=== PATIENT | female | born 1960 | race Caucasian/White ===

== ENCOUNTER 2024-12-05 19:26 | Inpatient (IN) | payer MEDICARE, OTHER ==
[~2024-12-05] VITALS: Ht 167.6 cm; Wt 84.7 kg
[~2024-12-05 19:26] MED LIST: AMLO5 PO; Aspirin EC81 MG PO; CEPH500 PO; LISI20 PO; OXYC5 PO; Prozac40 MG PO
[2024-12-05 20:02] LABS: Base Excess Venous -0.3 mmol/L; Bicarbonate Venous 24.2 mmol/L (24.0-30.0); PCO2 Venous 36.7 mmHg (38-42); pH Blood Venous 7.43 (7.34-7.37)
[2024-12-05 20:22] LABS: BASOPHILS ABSOLUTE AUTO 0.06 K/mm3 (0.00-0.23); BASOPHILS PERCENT AUTO 1 % (0-2); EOSINOPHILS ABSOLUTE AUTO 0.17 K/mm3 (0.00-0.68); EOSINOPHILS PERCENT AUTO 2 % (0-6); Hematocrit 24.7 % (33.0-51.0); Hemoglobin 7.3 g/dL (11.5-16.0); IMMATURE GRAN ABSOLUTE AUTO 0.02 K/mm3 (0.00-0.10); IMMATURE GRAN PERCENT AUTO 0 % (0-1); LYMPHOCYTES ABSOLUTE AUTO 1.41 K/mm3 (0.84-5.20); LYMPHOCYTES PERCENT AUTO 16 % (21-46); MONOCYTES ABSOLUTE AUTO 0.85 K/mm3 (0.16-1.47); MONOCYTES PERCENT AUTO 10 % (4-13); Mean Corpuscular HGB 21.3 pg (26.0-34.0); Mean Corpuscular HGB Conc 29.6 g/dL (31.5-36.5); Mean Corpuscular Volume 72 fL (80-100); Mean Platelet Volume 9.7 fL (9.1-12.4); NEUTROPHILS ABSOLUTE AUTO 6.24 K/mm3 (1.96-9.15); NEUTROPHILS PERCENT AUTO 71 % (41-73); Platelet Count 373 K/mm3 (150-400); RDW Coefficient Variation 17.2 % (11.7-14.2); RDW Standard Deviation 44.5 fL (35.1-46.3); Red Blood Cell Count 3.42 M/mm3 (3.80-5.20); White Blood Cell Count 8.75 K/mm3 (4.00-11.30)
[2024-12-05 20:50] LABS: Albumin, Blood 2.9 g/dL (3.4-5.0); Albumin/Globulin Ratio 0.7 (0.8-1.8); Bilirubin, Total 0.2 mg/dL (0.1-1.0); Bun/Creatinine Ratio 10.2 (12.0-20.0); Calcium, Blood 8.3 mg/dL (8.5-10.1); Creatinine, Blood 1.47 mg/dL (0.40-1.00); Globulin, Blood 3.9 g/dL (2.2-4.0); Potassium, Blood 2.6 mmol/L (3.5-5.5); Total Protein, Blood 6.8 g/dL (6.4-8.2)
[2024-12-05 20:51] LABS: Influenza A, PCR NEGATIVE (NEGATIVE); Influenza B, PCR NEGATIVE (NEGATIVE); Resp Syncytial Virus, PCR NEGATIVE (NEGATIVE); SARS-Cov-2 (COVID-19) PCR, MMC NEGATIVE (NEGATIVE)
[2024-12-05] MEDS ORDERED: Potassium Chloride 40 MEQ in NS 250 ML IV ONE ×2 (22:45→23:10)
[2024-12-05] MEDS ORDERED: Furosemide 10 MG/ML 4ML Vial IV ONE (22:45)
[2024-12-05 23:16] VITALS: BP 186/101
[2024-12-05 23:18] LABS: Magnesium, Blood 1.6 mg/dL (1.6-2.4)
[2024-12-05 23:24] LABS: Source, Urine Clean Catch
[2024-12-05] MEDS ORDERED: NS 1,000 ML IV ONE (23:24)
[2024-12-05 23:28] LABS: Appearance, Urine Clear (Clear); Bilirubin, Urine Neg (Neg); Blood, Urine 1+ (Neg); Glucose Qualitative, Urine Neg (Neg); Ketones, Urine Neg (Neg); Leukocyte Esterase, Urine Neg (Neg); Nitrite, Urine Neg (Neg); Protein, Urine 1+ (Neg); Urobilinogen, Urine NORM (Normal)
[2024-12-05 23:30] VITALS: BP 163/103
[2024-12-05 23:54] LABS: Color, Urine Pale Yellow (P-Yellow)
[2024-12-05 23:55] LABS: Bacteria Few /hpf; Red Blood Cells, Urine 0-2 /hpf (0-2); Squamous Epithelial Cells Few /hpf (Few); White Blood Cells, Urine 0-2 /hpf (0-5)
[2024-12-06] VITALS (7 sets, daily range): BP systolic 136–168; BP diastolic 80–102
--- NOTE | 2024-12-06 | NUR ---
CALLED AND RECEIVED REPORT FROM IRENE SETHI IN THE ER. PER REPORT PATIENT IS ALERT AND ORIENTED, INDEPENDENT WITH WALKING SHORT DISTANCES, IS SATTING >95% ON RA. PATIENT IS RECENTLY MOVED TO [place] FROM OUT OF STATE. AWAITING TRANSFER FROM ER.
--- NOTE | 2024-12-06 00:36 | NUR ---
NEW ADMIT. PATIENT ADMITTED TO [facility] FROM THE ER FOR CHF AND NEW AFIB. PATIENT ARRIVED TO ROOM VIA GURNEY AND 1P ASSIST. PATIENT ABLE TO SELF TRANSFER FROM [place] TO HOSPITAL BED WITH STEADY GAIT. PATIENT ARRIVED TO ROOM WITH POTTASIUM INFUSING PER ORDERS-SEE ORDERS. PATIENT ARRIVED TO ROOM WITH 1 PERSONAL BELONGINGS BAG AND PERSONAL PURSE-PATIENT AND SPOUSE EDUCATED TO SEND VALUABLES HOME. PATIENT IS ALERT AND ORIENTED. THIS RN TO ASSUME PATIENT CARE.
[2024-12-06] MEDS ORDERED: ELIQUIS5 M2 PO (04:10)
[2024-12-06] MEDS ORDERED: POTA10T PO (04:11)
[2024-12-06] MEDS ORDERED: MAGNESIUM OXID500 MG PO (04:14)
[2024-12-06] MEDS ORDERED: Vitamin D1000 UNI1 PO (04:14)
[2024-12-06 04:47] LABS: BASOPHILS ABSOLUTE AUTO 0.07 K/mm3 (0.00-0.23); BASOPHILS PERCENT AUTO 1 % (0-2); EOSINOPHILS ABSOLUTE AUTO 0.13 K/mm3 (0.00-0.68); EOSINOPHILS PERCENT AUTO 2 % (0-6); Hematocrit 24.8 % (33.0-51.0); Hemoglobin 7.3 g/dL (11.5-16.0); IMMATURE GRAN ABSOLUTE AUTO 0.02 K/mm3 (0.00-0.10); IMMATURE GRAN PERCENT AUTO 0 % (0-1); LYMPHOCYTES ABSOLUTE AUTO 0.98 K/mm3 (0.84-5.20); LYMPHOCYTES PERCENT AUTO 14 % (21-46); MONOCYTES ABSOLUTE AUTO 0.75 K/mm3 (0.16-1.47); MONOCYTES PERCENT AUTO 10 % (4-13); Mean Corpuscular HGB 21.3 pg (26.0-34.0); Mean Corpuscular HGB Conc 29.4 g/dL (31.5-36.5); Mean Corpuscular Volume 72 fL (80-100); Mean Platelet Volume 9.9 fL (9.1-12.4); NEUTROPHILS ABSOLUTE AUTO 5.33 K/mm3 (1.96-9.15); NEUTROPHILS PERCENT AUTO 73 % (41-73); Platelet Count 348 K/mm3 (150-400); RDW Coefficient Variation 17.1 % (11.7-14.2); Red Blood Cell Count 3.43 M/mm3 (3.80-5.20); White Blood Cell Count 7.28 K/mm3 (4.00-11.30)
--- NOTE | 2024-12-06 04:47 | NUR ---
SHIFT SUMMARY. PATIENT IS A&OX4, CALLS APPROPRIATELY AND IS ABLE TO MAKE HER NEEDS KNOWN. PATIENT HAS STEADY GAIT BUT REPORTS SOB WITH EXERTION AND TAKES PATIENT 2-3 MINUTES TO RECOVER ONCE SITTING OR RESTING. PATIENTS HEART RATE IS IN 80-90'S AT REST AND INCREASES INTO THE 100-130'S WITH ACTIVITY-PATIENT DENIES PALPATION OR RACING HEART DURING THESE TIMES, HEART RATE RECOVERS QUICKY WITH REST. PATIENT HAVING FREQUENT URINATION RELATED TO IV DIURETICS-PATIENT HAS HAD GOOD URINE OUTPUT SINCE ARRIVAL TO FLOOR. PATIENT IS A SBA D/T NEW DIAGNOSIS AND SOB WITH EXERTION. BED IS LOCKED IN LOWEST POSITION [facility] CALL LIGHT IN REACH. ROUNDS COMPLETED. CARE IS ONGOING.
[2024-12-06 05:31] LABS: Albumin, Blood 2.7 g/dL (3.4-5.0); Albumin/Globulin Ratio 0.7 (0.8-1.8); Bilirubin, Total 0.3 mg/dL (0.1-1.0); Bun/Creatinine Ratio 10.1 (12.0-20.0); Calcium, Blood 8.1 mg/dL (8.5-10.1); Creatinine, Blood 1.39 mg/dL (0.40-1.00); Globulin, Blood 3.7 g/dL (2.2-4.0); Potassium, Blood 2.7 mmol/L (3.5-5.5); Total Protein, Blood 6.4 g/dL (6.4-8.2)
[2024-12-06] MEDS ORDERED: Potassium Chloride 40 MEQ in NS 250 ML IV ONE ×2 (06:00→13:30)
--- NOTE | 2024-12-06 07:26 | NUR ---
Bedside shift report from Cora. Pt is awake, alert and oriented x 4. States breathing is much better than it was. She is lying on the bed, able to have conversation without any apparent difficulty. Afib 89 bpm noted by conveyor monitor at bedside. NO supplemental O2 needed, v/s are stable.
--- NOTE | 2024-12-06 08:00 | NUR ---
Spoke with resident Dr. Rucker during rounds. States to give scheduled morning meds; he will review with Dr. Chua and probably decrease the dose of lasix for the afternoon.
[2024-12-06] MEDS ORDERED: Apixaban 5 MG Tab PO SCH (09:00)
[2024-12-06] MEDS ORDERED: Furosemide 10 MG/ML 10ML Vial IV SCH (09:00)
[2024-12-06] MEDS ORDERED: AmLODIPine Besylate 5 MG Tab PO SCH (09:30)
--- NOTE | 2024-12-06 09:44 | NUR ---
ECHO completed in pt room.
[2024-12-06] MEDS ORDERED: Lisinopril 20 MG Tab PO SCH (10:00)
[2024-12-06 12:42] LABS: Calcium, Blood 8.3 mg/dL (8.5-10.1); Creatinine, Blood 1.4 mg/dL (0.40-1.00)
[2024-12-06] MEDS ORDERED: Magnesium Sulf 2 GM/Water 50ML 50 ML IV ONE (16:15)
[2024-12-06 18:10] LABS: Percent Saturation 3.8 % (15.0-50.0)
[2024-12-06] MEDS ORDERED: Potassium Chl 20MEQ/Water100ML 100 ML IV ONE (18:30)
[2024-12-06] MEDS ORDERED: OxyCODONE HCL 5 MG TAB PO ONE (22:25)
[2024-12-07] VITALS (9 sets, daily range): BP systolic 128–161; BP diastolic 71–91
--- NOTE | 2024-12-07 03:02 | NUR ---
PT ARRIVED TO 329 FROM [facility] AT 0140. PT AOX4, CALM AND COOPERATIVE. CALLS APPROPRIATELY. PT WAS SBA TO RESTROOM. TELEMETRY ON. THIS RN TO ASSUME CARE.
--- NOTE | 2024-12-07 06:11 | NUR ---
SHIFT SUMMARY PT HAS BEEN RESTING COMFORTABLY IN BED SINCE PT WAS TRANSFERRED. PT HAS BEEN AOX4, CALM AND COOPERATIVE. SHE CALLS APPROPRIATELY AND IS ABLE TO MAKE HER NEEDS KNOWN. PT HAS BEEN ON TELE, WITH NO EVENTS OVERNIGHT. PT HAS BEEN SBA OVERNIGHT. PT HAS HAD NO COMPLAINTS OVERNIGHT. PT HAD UNEVENTFUL NIGHT.
[2024-12-07] MEDS ORDERED: Furosemide 10 MG/ML 4ML Vial IV SCH ×2 (08:00)
[2024-12-07 08:07] LABS: Hematocrit 24.5 % (33.0-51.0); Hemoglobin 7.1 g/dL (11.5-16.0)
[2024-12-07 08:27] LABS: Bun/Creatinine Ratio 10.2 (12.0-20.0); Calcium, Blood 7.8 mg/dL (8.5-10.1); Creatinine, Blood 1.37 mg/dL (0.40-1.00); Magnesium, Blood 1.7 mg/dL (1.6-2.4); Potassium, Blood 3.2 mmol/L (3.5-5.5)
[2024-12-07] MEDS ORDERED: Apixaban 5 MG Tab PO SCH (09:00)
[2024-12-07] MEDS ORDERED: Ferrous Sulfate 325 MG Tab PO SCH (09:00)
[2024-12-07] MEDS ORDERED: Potassium Chl 20MEQ/Water100ML 100 ML IV STA (10:19)
[2024-12-07] MEDS ORDERED: NS 250 ML IV PRN (10:30)
[2024-12-07] MEDS ORDERED: Iron Dextran 50 MG / ML 2ML Vial IV ONE (10:50)
[2024-12-07] MEDS ORDERED: Magnesium Sulf 2 GM/Water 50ML 50 ML IV STA (10:50)
[2024-12-07] MEDS ORDERED: Empagliflozin 10 MG TAB PO SCH (11:00)
[2024-12-07] MEDS ORDERED: Loratadine 10 MG Tab PO SCH (11:00)
[2024-12-07] MEDS ORDERED: Iron Dextran 975 MG in NS 250 ML IV ONE (12:00)
--- NOTE | 2024-12-07 16:55 | NUR ---
SHIFT SUMMARY MS MEJIA HAD ELECTROLYTE REPLACEMENTS AND IRON DEXTRAN INFUSION. SHE TOLERATED THE TEST DOSE OF IRON DEXTRAN WITHOUT ANY REACTION. AFTER THE INFUSION WAS COMPLETE SHE HAS GENERALISED ITCHING, RASH ON BOTH LEGS AND A MILDER RASH ON HER ABDOMEN. DR LOCKETT WAS NOTIFIED AND HE IS COMING TO ASSESS HER. SHE DENIES SHORTNESS OF BREATH. SHE AMBULATES WITH STEADY GAIT TO THE BATHROOM AND HAS DIARRHEA STOOL WHICH IS NORMAL FOR HER. SHE IS ON TELEMETRY IN AFIB, CONTROLLED RATE. NO CALLS FROM FREELANCE RECRUITER. BED LOW, CALL LIGHT IN REACH.
[2024-12-07] MEDS ORDERED: Potassium Chl 20MEQ/Water100ML 100 ML IV SCH (18:00)
[2024-12-08 03:42] VITALS: BP 149/89
--- NOTE | 2024-12-08 05:07 | NUR ---
SUMMARY: PT A/OX4, IS INDEPENDENT IN ROOM AND CALLS APPROPRIATLEY TO SPECIFY NEEDS. SOFT DARK STOOLS PERSIST BUT LIKELY ARE R/T HX CHRONS AND CURRENT IRON INFUSIONS, NO S/S BLOOD/BLEEDING OBSERVED. PT CONT'S TO BE ITCHY AT TIMES W/LOTION APPLIED AND CLARITIN COMMENCED OD DAY SHIFT S/P NEW RASH FOLLOWING RECEIVING IRON. CARLOS ARCE EVALUATED HER AT THE TIME AND RASH CONT'S TO RESOLVE. K-RIDERS PROVIDED PER EMAR AND AM LABS ARE PENDING. SHE REMAINS AFIB ON TELE AT 80'S BPM. NO ACUTE CHANGES, VSS/AFEBRILE. POSSIBLE D/C HOME TODAY. WILL REPORT TO DAY RN.
[2024-12-08] MEDS ORDERED: Potassium Chl 20MEQ/Water100ML 100 ML IV STA (07:07)
[2024-12-08 07:30] VITALS: BP 153/96
[2024-12-08 07:38] LABS: Hematocrit 24.7 % (33.0-51.0); Hemoglobin 7.4 g/dL (11.5-16.0)
[2024-12-08 07:56] LABS: Albumin, Blood 2.8 g/dL (3.4-5.0); Anion Gap 10 mmol/L (3-11); Blood Urea Nitrogen 15 mg/dL (8-24); Bun/Creatinine Ratio 9.6 (12.0-20.0); CO2, Blood 23 mmol/L (21-32); Chloride, Blood 107 mmol/L (98-108); Creatinine, Blood 1.57 mg/dL (0.40-1.00); Glomerular Filtration Rate 36 (60-); Glucose, Blood 99 mg/dL (70-99); Magnesium, Blood 1.8 mg/dL (1.6-2.4); Phosphorus, Blood 3.1 mg/dL (2.5-4.9); Potassium, Blood 3.3 mmol/L (3.5-5.5); Sodium, Blood 137 mmol/L (136-145)
[2024-12-08] MEDS ORDERED: Metoprolol Succinate 25 MG TABCR PO SCH (09:00)
[2024-12-08] MEDS ORDERED: Magnesium Sulf 2 GM/Water 50ML 50 ML IV ONE (09:35)
[2024-12-08] MEDS ORDERED: Potassium Chloride 40 MEQ IV SCH (09:35)
[2024-12-08] MEDS ORDERED: Potassium Chloride 40 MEQ in NS 250 ML IV ONE (09:40)
[2024-12-08] MEDS ORDERED: Potassium Chl 20MEQ/Water100ML 100 ML IV SCH (09:55)
[2024-12-08] MEDS ORDERED: Spironolactone 25 MG Tab PO SCH (12:00)
[2024-12-08] MEDS ORDERED: JARDIANCE10 MG PO (14:02)
[2024-12-08] MEDS ORDERED: METO25ER PO (14:03)
[2024-12-08] MEDS ORDERED: SPIR25 PO (14:03)
[2024-12-08] MEDS ORDERED: FURO40 PO (14:03)
[2024-12-08] MEDS ORDERED: HYDROCORTISON28.4 G4 TOP (14:04)
--- NOTE | 2024-12-08 16:24 | NUR ---
ASSUMED CARE OF PT. A/O X4 PT HAS NO C/O PAIN SHOWS NO DISTRESS MULTIPLE IV INFUSIONS TO BE INFUSED BEFORE DISCHARGE. MD INTO SEE PT. DISCHARGE ORDERS GIVEN.. ONCE IV INFUSIONS WERE DONE PT DISCHARGE INSTRUCTIONS GIVEN IV DCED AT BEDSIDE BOTH STATE UNDERSTANDING.
== END 2024-12-08 15:34 | disposition home or self-care (01) | DRG 291 ==
LOC: ER 19:26 → PCU 19:27 → ERHOLD 19:27 → PCU 12-06 00:30 → MEDS 12-06 16:50 → PCU 12-07 01:02 → MEDS 12-07 01:42
PROVIDERS: Student in an Organized Health Care Education/Training Program; ADMIT Internal Medicine
DX: I13.0 Hypertensive heart and chronic kidney disease with heart failure and stage 1 through stage 4 chronic kidney disease, or unspecified chronic kidney disease (principal); I50.33 Acute on chronic diastolic (congestive) heart failure; I31.39 Other pericardial effusion (noninflammatory); K50.90 Crohn's disease, unspecified, without complications; S50.12XA Contusion of left forearm, initial encounter; S50.11XA Contusion of right forearm, initial encounter; E87.6 Hypokalemia; I48.91 Unspecified atrial fibrillation; Z86.711 Personal history of pulmonary embolism; D63.1 Anemia in chronic kidney disease; X58.XXXA Exposure to other specified factors, initial encounter; E83.42 Hypomagnesemia; N18.32 Chronic kidney disease, stage 3b; D50.9 Iron deficiency anemia, unspecified; Z79.01 Long term (current) use of anticoagulants; Z85.828 Personal history of other malignant neoplasm of skin; Z79.82 Long term (current) use of aspirin; Z79.899 Other long term (current) drug therapy; Z87.891 Personal history of nicotine dependence
CPT/HCPCS: 0241U; 36415; 71260; 80048; 80053; 80069; 81001; 82607; 82728; 82746; 82803; 83540; 83550; 83690; 83735; 83880; 84132; 85014; 85018; 85025; 93005; 93010; 93306; 96374; 96375; 96376; 99285-25; A9270; G0378; J1750; J1938; J3475; J3480; J7030; J7050; Q9967

== ENCOUNTER → 2024-12-21 | Outpatient (CLI) | payer MEDICARE ==
[~2024-12-21] MED LIST changes: +ELIQUIS5 M2 PO; +FURO40 PO; +HYDROCORTISON28.4 G4 TOP; +JARDIANCE10 MG PO; +MAGNESIUM OXID500 MG PO; +METO25ER PO; +POTA10T PO; +SPIR25 PO; +Vitamin D1000 UNI1 PO
[2024-12-21 16:00] LABS: BASOPHILS ABSOLUTE AUTO 0.12 K/mm3 (0.00-0.23); BASOPHILS PERCENT AUTO 1 % (0-2); EOSINOPHILS ABSOLUTE AUTO 1.85 K/mm3 (0.00-0.68); EOSINOPHILS PERCENT AUTO 15 % (0-6); Hematocrit 32.5 % (33.0-51.0); Hemoglobin 9.3 g/dL (11.5-16.0); IMMATURE GRAN ABSOLUTE AUTO 0.03 K/mm3 (0.00-0.10); IMMATURE GRAN PERCENT AUTO 0 % (0-1); LYMPHOCYTES ABSOLUTE AUTO 1.43 K/mm3 (0.84-5.20); LYMPHOCYTES PERCENT AUTO 12 % (21-46); MONOCYTES ABSOLUTE AUTO 0.65 K/mm3 (0.16-1.47); MONOCYTES PERCENT AUTO 5 % (4-13); Mean Corpuscular HGB 23.3 pg (26.0-34.0); Mean Corpuscular HGB Conc 28.6 g/dL (31.5-36.5); Mean Corpuscular Volume 82 fL (80-100); Mean Platelet Volume 9.9 fL (9.1-12.4); NEUTROPHILS ABSOLUTE AUTO 8.09 K/mm3 (1.96-9.15); NEUTROPHILS PERCENT AUTO 67 % (41-73); Platelet Count 394 K/mm3 (150-400); RDW Coefficient Variation 26.1 % (11.7-14.2); RDW Standard Deviation 73.5 fL (35.1-46.3); Red Blood Cell Count 3.99 M/mm3 (3.80-5.20); White Blood Cell Count 12.17 K/mm3 (4.00-11.30)
== END | disposition home or self-care (01) ==
LOC: LAB SHORT 14:46 → LAB 14:46
PROVIDERS: Family Medicine
DX: I50.30 Unspecified diastolic (congestive) heart failure (principal); D64.9 Anemia, unspecified
CPT/HCPCS: 80051; 85025

== ENCOUNTER → 2025-04-09 | Outpatient (CLI) | payer MEDICARE ==
[2025-04-12 16:57] LABS: CALPROTECTIN,FECAL 83 ug/g (<=49)
== END | disposition home or self-care (01) ==
LOC: LAB 10:14 → LAB SHORT 10:14
PROVIDERS: Physician Assistant Medical
DX: K50.118 Crohn's disease of large intestine with other complication (principal)
CPT/HCPCS: 83993

== ENCOUNTER 2025-05-23 06:30 | Day surgery (SDC) | payer MEDICARE ==
[~2025-05-23] VITALS: Ht 167.6 cm; Wt 76.0 kg
[2025-05-23] MEDS ORDERED: ETHACRYNIC ACID (07:07)
[2025-05-23] MEDS ORDERED: LOSA25 (07:08)
[2025-05-23] MEDS ORDERED: Benzocaine Oral Spray 0.5ML UD ONE (07:46)
--- NOTE | 2025-05-23 09:17 | NUR ---
05/23/25 0917 Zimmerman,Joon PT REPOSITIONED TO BACK AND RETURNED TO LEFT SIDE.
[2025-05-23 10:06] VITALS: BP 123/84
== END 2025-05-23 10:16 | disposition home or self-care (01) ==
LOC: ORSCSDS 06:30
PROVIDERS: Internal Medicine Gastroenterology
PROC: 0DBP8ZX Excision of Rectum, Via Natural or Artificial Opening Endoscopic, Diagnostic (ICD-10-PCS; principal; 2025-05-23 08:00)
PROC: 0DB78ZX Excision of Stomach, Pylorus, Via Natural or Artificial Opening Endoscopic, Diagnostic (ICD-10-PCS; principal; 2025-05-23 08:00)
PROC: 0DB98ZX Excision of Duodenum, Via Natural or Artificial Opening Endoscopic, Diagnostic (ICD-10-PCS; principal; 2025-05-23 08:00)
PROC: 0DBC8ZX Excision of Ileocecal Valve, Via Natural or Artificial Opening Endoscopic, Diagnostic (ICD-10-PCS; principal; 2025-05-23 08:00)
PROC: 0DBL8ZX Excision of Transverse Colon, Via Natural or Artificial Opening Endoscopic, Diagnostic (ICD-10-PCS; principal; 2025-05-23 08:00)
PROC: 0DBM8ZX Excision of Descending Colon, Via Natural or Artificial Opening Endoscopic, Diagnostic (ICD-10-PCS; principal; 2025-05-23 08:00)
PROC: 0DBH8ZX Excision of Cecum, Via Natural or Artificial Opening Endoscopic, Diagnostic (ICD-10-PCS; principal; 2025-05-23 08:00)
PROC: 0DBK8ZX Excision of Ascending Colon, Via Natural or Artificial Opening Endoscopic, Diagnostic (ICD-10-PCS; principal; 2025-05-23 08:00)
PROC: 0DBN8ZX Excision of Sigmoid Colon, Via Natural or Artificial Opening Endoscopic, Diagnostic (ICD-10-PCS; principal; 2025-05-23 08:00)
DX: D50.9 Iron deficiency anemia, unspecified (principal); K50.10 Crohn's disease of large intestine without complications; K29.70 Gastritis, unspecified, without bleeding; K92.1 Melena; K56.699 Other intestinal obstruction unspecified as to partial versus complete obstruction; K52.9 Noninfective gastroenteritis and colitis, unspecified; I48.91 Unspecified atrial fibrillation; Z79.01 Long term (current) use of anticoagulants; I50.9 Heart failure, unspecified; Z79.899 Other long term (current) drug therapy; Z87.891 Personal history of nicotine dependence; Z86.711 Personal history of pulmonary embolism
CPT/HCPCS: 88305; 88342; A9270; C1726; J2704; J7120